=== PATIENT | male | born 1970 | race Caucasian/White ===

== ENCOUNTER → 2018-05-06 | Outpatient (CLI) | payer OTHER ==
[~2018-05-06] MED LIST: CIALIS5 MG PO; DOLACET 5/5001 EACH PO; FISH OIL 1,2001 EACH PO; KEFLEX PO; KETOROLAC PO; TYLENOL PM EX-1 EACH; VITAMIN B-121000 MC2 PO; Z.0.BENICAR HCT 401 PO; Z.0.ONDANSETRON HCL4 PO; Z.0.PROMETHAZINE HC2 PO; Z.0.TAMSULOSIN HCL0. PO; Z.1.HYDROCODON-ACE1 PO; [UNRECOGNIZED DRUG - OTHER]
--- NOTE | 2018-05-06 12:28 | Cardiology Report ---
DATE OF STUDY: May 06, 2018 EXERCISE TREADMILL STRESS TEST INDICATIONS: Chest pain. PROCEDURE IN DETAIL: The patient performed treadmill exercise using a [place] protocol, exercising for 9 minutes 2 seconds to stage 3 and completing an estimated workload of 10.1 metabolic equivalents (METs). The test was terminated due to fatigue. The heart rate was 91 beats per minute at rest and increased to 159 beats per minute at peak exercise, which was 93% of the maximum predicted heart rate. The rest blood pressure was 139/92 mmHg and increased to 164/70 mmHg, which is a normal response. The patient did not develop any symptoms other than fatigue during the procedure. The resting electrocardiogram demonstrated normal sinus rhythm with nonspecific ST abnormalities. There were no ST segment changes consistent with myocardial ischemia. CONCLUSIONS: Normal clinical hemodynamic and electrocardiographic exercise treadmill stress test. Job#: [id number] EV cc:FANNY MILLER MD
--- NOTE | 2018-05-06 13:40 | Consultation ---
DATE OF CONSULTATION: May 06, 2018 CARDIOLOGY CONSULTATION REQUESTING PHYSICIAN: Dr. Dioni De La Paz. REASON FOR CONSULTATION: Chest pain. HISTORY OF PRESENT ILLNESS: This is a 47-year-old man with a history of hypertension, who presents with complaints of chest pain. He reports he has been having chest pain for the last 3 weeks, mostly in the evenings. The pain is described as a pressure-like sensation associated with shortness of breath. The pain is 4 out of 10 in severity and is not associated with activity. He denies any radiation, nausea or diaphoresis. REVIEW OF SYSTEMS: Negative except as per HPI. PAST MEDICAL HISTORY: Hypertension. PAST SURGICAL HISTORY 1. Shoulder surgery x2. 2. Bilateral carpal tunnel surgery. ALLERGIES: PLEASE SEE EMR. MEDICATIONS: Please see medication list. SOCIAL HISTORY: Denies tobacco or illicit drugs. He does endorse alcohol use. FAMILY HISTORY: Pertinent for mother who had a recent 3-vessel CABG. PHYSICAL EXAMINATION VITAL SIGNS: Reviewed. GENERAL: Awake, alert. A well-developed, well-nourished man in no acute distress. HEENT: Normocephalic, atraumatic. Pupils equal, no scleral icterus. NECK: Supple. No thyromegaly or cervical lymphadenopathy, no carotid bruits. LUNGS: Clear to auscultation bilaterally. No wheezes or crackles. CARDIOVASCULAR: Normal rate, regular rhythm. No murmur. Normal S1 and S2. ABDOMEN: Soft, nontender. EXTREMITIES: No edema. NEURO: Nonfocal exam. IMPRESSION 1. Chest pain. 2. Hypertension. RECOMMENDATIONS: Proceed with exercise treadmill stress test as ordered. Thank you for this consult. We will continue to follow. Job#: [id number] EV
== END ==
LOC: CARD 10:01
PROVIDERS: ATTEND Internal Medicine
DX: R07.9 Chest pain, unspecified (principal)
CPT/HCPCS: 93017

== ENCOUNTER 2018-07-01 06:50 | Observation (INO) | payer OTHER ==
[2018-06-30 09:07] LABS: BASOPHILS % 0.6 % (0.0-1.0); EOSINOPHILS # (AUTO) 0.1 (0.0-0.4); EOSINOPHILS % 1.7 % (0.0-6.0); HEMATOCRIT 53.3 % (38.2-49.6); LYMPHOCYTES # (AUTO) 1.5 (1.0-3.2); LYMPHOCYTES % 21.5 % (18.0-39.1); MEAN CORPUSCULAR HEMOGLOBIN 31.6 pg (28-32); MEAN CORPUSCULAR HGB CONC 33.8 g/dL (31-35); MEAN CORPUSCULAR VOLUME 93.5 fL (81-99); MONOCYTES # (AUTO) 0.6 (0.2-0.8); MONOCYTES % 9.2 % (4.4-11.3); NEUTROPHILS # (AUTO) 4.7 (2.1-6.9); NEUTROPHILS % 66.9 % (38.7-80.0); PLATELET COUNT 208 x10e3/uL (140-360); RED CELL DISTRIBUTION WIDTH 12.9 % (11.7-14.4)
[2018-06-30 09:20] LABS: INR 1.05; PROTHROMBIN TIME 12.9 seconds (11.9-14.5)
[2018-06-30 09:21] LABS: PARTIAL THROMBOPLASTIN TIME 31.6 seconds (23.8-35.5)
[2018-06-30 09:26] LABS: ANION GAP 16.7 mmol/L (8-16); BLOOD UREA NITROGEN 16 mg/dL (7-26); BUN/CREATININE RATIO 15 (6-25); CARBON DIOXIDE 26 mmol/L (22-29); CHLORIDE 101 mmol/L (98-107); CREATININE, SERUM 1.05 mg/dL (0.72-1.25); EST GLOMERULAR FILTRATION RATE > 60 ML/MIN (60-); GLUCOSE 114 mg/dL (74-118); POTASSIUM 3.7 mmol/L (3.5-5.1); SODIUM 140 mmol/L (136-145)
--- NOTE | 2018-06-30 09:26 | Diagnostic Imaging Report ---
PROCEDURE: X-RAY CHEST, TWO VIEWS COMPARISON: None. INDICATIONS: PRE OP NECK SURGERY FINDINGS: Lungs are well-inflated. No consolidation, pleural effusion, or pneumothorax. Cardiomediastinal contour and pulmonary vasculature are within normal limits. Surgical clips project over the right upper quadrant of the abdomen likely related to cholecystectomy. Multilevel degenerative disc changes of the thoracic spine. CONCLUSION: No acute thoracic abnormality. Dictated by: Tereso Liu M.D. on 06/30/2018 at 9:33 Electronically approved by: Tereso iLu M.D. on 06/30/2018 at 9:33
[~2018-07-01] VITALS: Ht 172.7 cm; Wt 105.3 kg
[~2018-07-01 06:50] MED LIST changes: +BACITRACIN 50,000 UNIT VIAL ONE; +BUPIVACAINE 0.5%/EPI 30 ML SDV INJ ONE; +EDARBYCLOR 40-1 EACH; +GELATIN SPONGE SZ 100 ONE; +METHOCARBAMOL750 MG PO; +PANTOPRAZOLE SO40 MG PO; +THROMBIN FOR SOLN 5,000 UNIT VIAL ONE; +VITAMIN C1000 M2; +[UNRECOGNIZED DRUG - OTHER]
[2018-07-01] MEDS ORDERED: ACETAMINOPHEN 1000 MG/100 ML 100 ML IV ONE (07:20)
[2018-07-01] MEDS ORDERED: LIDOCAINE HCL (LTA) 4 ML SOLN ONE (07:20)
[2018-07-01] MEDS ORDERED: VANCOMYCIN 1GM/NS 250 ML 250 ML ONE (07:21)
[2018-07-01] MEDS: LACTATED RINGER'S 1,000 ML IV SCH ×2 (09:31→17:51)
[2018-07-01] MEDS ORDERED: FENTANYL CITRATE/PF 100MCG/2 ML INJ ONE ×2 (09:44→18:06)
[2018-07-01] MEDS ORDERED: METHOCARBAMOL 750 MG TAB PO PRN (09:45)
[2018-07-01] MEDS ORDERED: ACETAMINOPHEN 325 MG TAB PO PRN (09:45)
[2018-07-01] MEDS ORDERED: PROMETHAZINE HCL (IM) 25 MG/ML VIAL IM PRN (09:45)
[2018-07-01] MEDS ORDERED: ONDANSETRON HCL INJ 2 MG/ML VIAL IV PRN (09:45)
[2018-07-01] MEDS ORDERED: MORPHINE SULFATE 5 MG/ML VIAL IM PRN (09:45)
[2018-07-01] MEDS ORDERED: HYDROMORPHONE 2MG/ML 2 MG/ML ML IV PRN (09:45)
[2018-07-01] MEDS ORDERED: OXYCODONE/ACETAMINOPHEN 5-325 1 EACH TABLET PO PRN (09:45)
[2018-07-01] MEDS ORDERED: MAGNESIUM/ALUMINUM/SIMETHICONE 30 ML UDC PO PRN (09:45)
--- NOTE | 2018-07-01 10:13 | Operative Report ---
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 POSTOPERATIVE DIAGNOSIS: C6-7 disk herniation and spondylosis with radiculopathy, M50.123. PROCEDURES 1. C6-7 anterior cervical diskectomy, microsurgical osteophyte resection and allograft fusion, 87226. 2. Preparation of [employer] cortical cancellous allograft, 46419. 3. C6-7 anterior cervical plating with Synthes ZPN plate, 01379. ANESTHESIA: General. INDICATIONS: Patient is a 47-year-old man who presents with left C7 radiculopathy due to a disk osteophyte complex and osseous foraminal stenosis at C6-7. He was taken to the operating room for anterior cervical decompression and fusion. DETAILS OF PROCEDURE: After the induction of general anesthesia, the patient was placed on the operating table in the supine position. The right side of the neck was prepped and draped in sterile fashion. The fluoroscopic C-arm was positioned in cross-table lateral orientation. A transverse incision was created on the right side of the neck superimposed on the C6-7 disk space as determined by fluoroscopy. The platysma was divided in line with the incision. A subplatysmal dissection was carried out. An avascular plane of dissection was developed medial to the sternocleidomastoid muscle and was followed medial to the carotid sheath to the anterior border of the cervical spine. The deep cervical fascia was opened. The esophagus was retracted to the left. The attachments of the longus coli muscles to the anterolateral aspects of the vertebral bodies of C6 and C7 were divided. The anterior longitudinal ligament was resected. Floyd posts were inserted into C6 and C7. The Floyd distractor was used to distract the disk space. The anterior annulus of the disk was incised with a #11 blade. The contents of the C6-7 disk were thoroughly evacuated with angled curets and pituitary rongeurs. The posterior osteophytes were meticulously drilled with a 2-mm cutting bur on a high-speed drill until they were completely removed. The medial aspect of the hypertrophic uncinate process on the left side was thoroughly drilled out. The posterior annulus of the disk, chronically herniated disk material, and the posterior longitudinal ligament were dissected layer by layer until the dura was fully exposed and decompressed. A 1-mm Kerrison rongeur was used to further resect the uncinate process on the left side to ensure decompression of the origin of the left C7 nerve root. After satisfactory decompression had been achieved, the endplates were prepared for fusion. The disk space was sized and found to be 8 mm in height. A piece of MTF cortical cancellous allograft measuring 8 mm in thickness was selected and loaded onto a Synthes ZPN plate. The construct was inserted into the C6-7 disk space under distraction and fluoroscopic guidance and tapped in place until the plate was flush with the anterior margin of the vertebral bodies. The plate was then screwed to the endplates of C6 and C7 with 2 pairs of 14-mm screws. All screws were locked. An excellent construct was obtained. The wound was copiously irrigated with Bacitracin solution. Meticulous hemostasis was secured. The platysma was closed with 3-0 Vicryl sutures. The skin was closed with 4-0 Monocryl sutures in a subcuticular fashion. Steri-Strips and dressing were applied. The patient was awakened, extubated, and taken to the postanesthesia care unit in stable condition. No intraoperative complications were encountered. Estimated blood loss was 10 mL. Job#: [id number]
[2018-07-01] MEDS ORDERED: HYDROMORPHONE 1MG/1ML INJ ONE (10:38)
[2018-07-01 11:44] VITALS: BP 120/77
[2018-07-01 11:46] VITALS: BP 120/77
[2018-07-01] MEDS: PANTOPRAZOLE SOD 40 MG TABEC PO SCH (12:09)
[2018-07-01] MEDS: CARISOPRODOL 350 MG TAB PO PRN ×2 (12:10→19:20)
[2018-07-01] MEDS ORDERED: PNEUMOCOCCAL VACCINE POLYVALENT 23 MCG/0.5 ML VIAL IM ONE (12:30)
[2018-07-01] MEDS ORDERED: INFLUENZA VIRUS VAC SPLIT INJ 0.5 ML SYR IM ONE (12:30)
[2018-07-01 15:54] VITALS: BP 126/74
[2018-07-01] MEDS: OXYCODONE/ACETAMINOPHEN 5-325 1 EACH TABLET PO PRN ×2 (16:48→20:41)
[2018-07-01] MEDS: VANCOMYCIN 1GM/NS 250 ML 250 ML IV SCH (17:45)
[2018-07-01] MEDS ORDERED: MIDAZOLAM HCL 2 MG/2 ML VIAL ONE (18:06)
[2018-07-01] MEDS ORDERED: GLYCOPYRROLATE INJ 1MG/ 5 ML SYR ONE (18:39)
[2018-07-01] MEDS ORDERED: SEVOFLURANE INHAL SOLN 250 ML PEN BTL ONE (18:39)
[2018-07-01] MEDS ORDERED: NEOSTIGMINE 5 MG/5ML SYR ONE (18:39)
[2018-07-01] MEDS ORDERED: ONDANSETRON HCL INJ 2 MG/ML VIAL ONE (18:39)
[2018-07-01] MEDS ORDERED: LIDOCAINE HCL 2% JELLY 5 ML TUBE ONE (18:39)
[2018-07-01] MEDS ORDERED: PROPOFOL IV EMULSION 10 MG/ML 20 ML VIAL ONE (18:39)
[2018-07-01] MEDS ORDERED: ROCURONIUM BROMIDE 10 MG/ML 5ML VIAL ONE (18:39)
[2018-07-01] MEDS ORDERED: LIDOCAINE HCL 2% LOCAL INJ 5 ML SDV VIAL INJ ONE (18:39)
[2018-07-01] MEDS ORDERED: DEXAMETHASONE SOD PHOS INJ 4 MG/ML VIAL ONE (18:39)
[2018-07-01 20:00] VITALS: BP 141/71
[2018-07-01] MEDS ORDERED: ZOLPIDEM TARTRATE 5 MG TAB PO PRN (21:00)
[2018-07-02 00:32] VITALS: BP 129/73
[2018-07-02] MEDS: OXYCODONE/ACETAMINOPHEN 5-325 1 EACH TABLET PO PRN ×2 (00:56→05:07)
[2018-07-02] MEDS: LACTATED RINGER'S 1,000 ML IV SCH (01:14)
[2018-07-02] MEDS: VANCOMYCIN 1GM/NS 250 ML 250 ML IV SCH (05:07)
[2018-07-02 05:48] VITALS: BP 134/77
[2018-07-02 08:17] VITALS: BP 139/82
--- NOTE | 2018-07-02 09:38 | Diagnostic Imaging Report ---
PROCEDURE: X-RAY CERVICAL SPINE, TWO VIEWS COMPARISON:None. INDICATIONS:POST CERVICAL SPINE SURGERY FINDINGS: C1 through C6 is initially visualized, and C7 is subsequently visualized on Swimmer's view. There is anterior cervical spine fusion from C6-C7 with intervertebral body disc spacer. Hardware appears intact. The visualized vertebral bodies are well-aligned. No evidence of fracture. Pre-vertebral soft tissues appears unremarkable. CONCLUSION: Status post C6-C7 anterior cervical spine fusion with unremarkable alignment and intact hardware. Dictated by: AMPARO RAMIREZ M.D. on 07/02/2018 at 9:45 Electronically approved by: AMPARO RAMIREZ M.D. on 07/02/2018 at 9:45
[2018-07-02] MEDS: PANTOPRAZOLE SOD 40 MG TABEC PO SCH (09:53)
[2018-07-02 10:24] VITALS: BP 139/82
== END 2018-07-02 11:07 | disposition home or self-care (01) ==
LOC: OR 06:50 → PACU V 09:33 → MED/SURG 10:59
PROVIDERS: ADMIT Neurological Surgery; ATTEND Neurological Surgery
DX: M50.123 Cervical disc disorder at C6-C7 level with radiculopathy (principal); I10 Essential (primary) hypertension; Z01.810 Encounter for preprocedural cardiovascular examination; Z01.812 Encounter for preprocedural laboratory examination; Z01.811 Encounter for preprocedural respiratory examination; Z23 Encounter for immunization; Z88.0 Allergy status to penicillin
CPT/HCPCS: 20931; 22551; 22845; 36415 ×2; 71046; 72040; 77003; 80048; 82948; 85025; 85610; 85730; 86850; 86900; 88304; 90732; 93005; C1713 ×2; C9359; G0378 ×2; J1100; J1170; J2001 ×2; J2250; J2405; J3370 ×2; J3490; J7120 ×2; S0164 ×2; J2270

== ENCOUNTER → 2018-07-29 | Outpatient (CLI) | payer OTHER ==
[~2018-07-29] MED LIST changes: -BACITRACIN 50,000 UNIT VIAL ONE; -BUPIVACAINE 0.5%/EPI 30 ML SDV INJ ONE; -GELATIN SPONGE SZ 100 ONE; -THROMBIN FOR SOLN 5,000 UNIT VIAL ONE
--- NOTE | 2018-07-29 09:57 | Diagnostic Imaging Report ---
PROCEDURE: C-SPINE AP AND LAT WITH FLEX AND EXT COMPARISON: Cervical spine radiographs 07/02/2018. INDICATIONS: POST CERVICAL SPINE SURGERY FINDINGS: C1 through C6 is initially visualized, and C7 is subsequently visualized on Swimmer's view. There is anterior cervical spine fusion from C6-C7 with intervertebral body disc spacer. Hardware appears intact. The visualized vertebral bodies are well-aligned. No change in alignment on flexion and extension views. No evidence of fracture. Pre-vertebral soft tissues appears unremarkable. CONCLUSION: Status post C6-C7 anterior cervical spine fusion with unremarkable alignment and intact hardware. Dictated by: AMPARO RAMIREZ M.D. on 07/29/2018 at 10:06 Electronically approved by: AMPARO RAMIREZ M.D. on 07/29/2018 at 10:06
--- NOTE | 2018-07-29 10:00 | Diagnostic Imaging Report ---
PROCEDURE:X-RAY ABDOMEN - KUB COMPARISON:None. INDICATIONS:CALCULUS OF KIDNEY FINDINGS: There is a non-obstructed bowel-gas pattern. There are no calcifications projected over the renal shadows, expected course of the ureters or bladder. There are no acute osseous abnormalities. The lung bases are clear. Status post cholecystitis. CONCLUSION: No radiographic evidence of stone. Dictated by: AMPARO RAMIREZ M.D. on 07/29/2018 at 10:08 Electronically approved by: AMPARO RAMIREZ M.D. on 07/29/2018 at 10:08
== END ==
LOC: RAD 09:05
PROVIDERS: ATTEND Neurological Surgery
DX: M50.20 Other cervical disc displacement, unspecified cervical region (principal); Z98.1 Arthrodesis status; N20.0 Calculus of kidney
CPT/HCPCS: 72050; 74018

== ENCOUNTER → 2020-02-21 | Day surgery (SDC) | payer OTHER ==
[2020-02-17 10:48] LABS: ANION GAP 12.5 mmol/L (8-16); BLOOD UREA NITROGEN 11 mg/dL (7-26); BUN/CREATININE RATIO 13 (6-25); CALCIUM 9.2 mg/dL (8.4-10.2); CARBON DIOXIDE 29 mmol/L (22-29); CHLORIDE 101 mmol/L (98-107); CREATININE, SERUM 0.83 mg/dL (0.72-1.25); EST GLOMERULAR FILTRATION RATE > 60 ML/MIN (60-); GLUCOSE 100 mg/dL (74-118); POTASSIUM 3.5 mmol/L (3.5-5.1); SODIUM 139 mmol/L (136-145)
[~2020-02-21] MED LIST changes: +ACETAMINOPHEN/CODEINE 300MG - 30MG TAB ONE; +BUPIVACAINE HCL 0.5% INJ 30 ML VIAL INJ ONE; +CLINDAMYCIN 600MG / 50ML 50 ML IV ONE; +DEXAMETHASONE SOD PHOS INJ 4 MG/ML VIAL ONE; +FENTANYL CITRATE/PF 100MCG/2 ML INJ ONE; +FISH OIL 1,0001 EAC2 PO; +HYDROCODON-ACE1 EAC9 PO; +HYDROMORPHONE 1MG/1ML INJ ONE; +LIDOCAINE HCL 2% LOCAL INJ 5 ML SDV VIAL INJ ONE; +ONDANSETRON HCL INJ 2MG/ML 2ML 2 MG/ML VIAL ONE; +PROPOFOL IV EMULSION 10 MG/ML 20 ML VIAL ONE; +SEVOFLURANE INHAL SOLN 250 ML PEN BTL ONE; +TELMISARTAN-HC1 EAC2 PO; -VITAMIN C1000 M2; +VITAMIN C1000 M2 PO
[2020-02-21 09:25] VITALS: BP 128/87
--- NOTE | 2020-02-21 14:05 | Operative Report ---
DATE OF PROCEDURE: 02/21/2020 SURGEON: Tereso Sanabria MD [facility] [employer] CONSULTANT: Alvin Da Silva, certified PA PREOPERATIVE DIAGNOSIS: Left 5th mallet finger. POSTOPERATIVE DIAGNOSIS: Left 5th mallet finger. PROCEDURE: Closed reduction percutaneous pin fixation, left 5th finger. INDICATIONS: The patient is a 49-year-old gentleman who sustained an acute mallet finger of his left 5th digit. The findings and options were discussed. He would like to proceed with closed reduction and pinning versus a Stax splint. The risks and benefits were explained. The need to remove the pin in the office at a later date was explained. He states he understands and wishes to proceed. PROCEDURE IN DETAIL: The patient was brought to the operating room and placed under anesthetic. His left upper extremity was prepped and draped in a sterile manner. A preoperative time-out was performed. A C-arm image intensifier was used to assist in placing a 0.45 mm K-wire from the distal phalanx across the distal interphalangeal joint. Pictures were taken that confirmed good positioning of the DIP joint and of the pin. The pin was cut short, bent and capped. A sterile bandage was applied. He was transported to the recovery room in stable condition. There was no blood loss and all needle and sponge counts were correct. Tereos Sanabria MD DR/JANAE /[id number]
== END | disposition home or self-care (01) ==
LOC: OR 05:27
PROVIDERS: ATTEND Specialist
DX: M20.012 Mallet finger of left finger(s) (principal); K21.9 Gastro-esophageal reflux disease without esophagitis; W01.0XXA Fall on same level from slipping, tripping and stumbling without subsequent striking against object, initial encounter; Z88.0 Allergy status to penicillin; Z01.810 Encounter for preprocedural cardiovascular examination; Z01.812 Encounter for preprocedural laboratory examination; Z11.59 Encounter for screening for other viral diseases; Z68.33 Body mass index [BMI] 33.0-33.9, adult
CPT/HCPCS: 26432; 36415; 80048; 87635; 93005; C1713; J1100; J1170; J2001; J2405; J2704; J3010; 76000